=== PATIENT | male | born 1980 | race African-American/Black ===

== ENCOUNTER 2016-12-26 16:52 | Emergency (ER) | payer SELFPAY ==
[2016-12-26 17:09] VITALS: BP 119/83
--- NOTE | 2016-12-26 17:57 | EDM.PDOC ---
ED HPI GENERAL MEDICAL PROBLEM - General Chief Complaint: Upper Extremity Injury/Pain Stated Complaint: RT HAND LAC Time Seen by Provider: 12/26/16 17:18 Source of Information: Reports: Patient, Significant Other (Girlfriend) History Limitations: Reports: No Limitations - History of Present Illness INITIAL COMMENTS - FREE TEXT/NARRATIVE: The patient states that his right hand was crushed between a trailer and a hitch while at work yesterday morning, 12/25/2016. He suffered a laceration to the dorsum of his hand, that he has poured alcohol over, followed by butterfly strips. His hand has since developed significant pain and swelling. He took a leftover Percocet around 19:00 last night, and a single dose of leftover Keflex 500 mg around 11:00 this morning. Treatments DIDACTIC INSTRUCTOR: Reports: Other (see below) Other Treatments DIDACTIC INSTRUCTOR: left over percocet and old antibiotic Right Hand Pain Score (Numeric/FACES): 8 - Related Data Allergies Allergy/AdvReac Type Severity Reaction Status Date / Time methadone Allergy Rash Verified 01/30/16 15:05 morphine Allergy Rash Verified 01/30/16 15:05 Home Meds: Home Meds ALPRAZolam [Xanax] 2 mg PO Q12HR PRN #20 tablet 11/11/14 [Rx] Amiodarone [Cordarone] 200 mg PO BID 11/11/14 [History] Aspirin [Halfprin] 81 mg PO DAILY 11/11/14 [History] Carvedilol [Coreg] 6.25 mg PO BID 11/11/14 [History] Lisinopril 2.5 mg PO DAILY 11/11/14 [History] Simvastatin [Zocor] 40 mg PO BEDTIME 11/11/14 [History] Spironolactone [Aldactone] 12.5 mg PO DAILY 11/11/14 [History] Cephalexin 500 mg PO QID #20 capsule 01/30/16 [Rx] Amiodarone [Cordarone] 200 mg PO BID #14 tablet 12/26/16 [Rx] Carvedilol [Coreg] 6.25 mg PO BIDMEALS #14 tablet 12/26/16 [Rx] Cephalexin [Keflex] 500 mg PO Q6HR #40 cap 12/26/16 [Rx] Hydrocodone/Acetaminophen [Anadarko 5-325 Tablet] 1 - 2 tab PO Q8H PRN #14 tablet 12/26/16 [Rx] Lisinopril 2.5 mg PO DAILY #7 tablet 12/26/16 [Rx] Simvastatin [Zocor] 40 mg PO BEDTIME #7 tablet 12/26/16 [Rx] Spironolactone [Aldactone] 12.5 mg PO DAILY #4 tablet 12/26/16 [Rx] Past Medical History HEENT History: Reports: Allergic Rhinitis Cardiovascular History: Reports: Cardiomyopathy (etiology unclear), Heart Failure (LVEF 22-23% in 2014), High Cholesterol, Hypertension, [place]. Denies: CAD Respiratory History: Reports: Sleep Apnea Gastrointestinal History: Reports: GERD Neurological History: Reports: Migraines Psychiatric History: Reports: Anxiety, Depression - Past Surgical History Cardiovascular Surgical History: Reports: AICD, Pacer Social & Family History - Tobacco Use Smoking Status *Q: Current Every Day Smoker Years of Tobacco use: 3 Packs/Tins Daily: 1 - Caffeine Use Caffeine Use: Reports: Coffee, Soda - Alcohol Use Alcohol Use History: Yes Alcohol Use Frequency: Socially - Recreational Drug Use Recreational Drug Use: Yes Drug Use in Last 12 Months: Yes Recreational Drug Type: Reports: Marijuana/Hashish (edibles) Other Recreational Drug Type: edible marijuana about 1 month ago - Living Situation & Occupation Living situation: Reports: Single, with Significant Other (Girlfriend) Occupation: Employed ([employer]) Review of Systems - Review of Systems Review Of Systems: See Below Constitutional: Reports: Other (Recent seasonal allergy symptoms, including runny nose, watery eyes, coughing, sneezing) Eyes: Reports: No Symptoms Ears: Reports: No Symptoms Nose: Reports: No Symptoms Mouth/Throat: Reports: No Symptoms Respiratory: Reports: No Symptoms Cardiovascular: Reports: No Symptoms GI/Abdominal: Reports: No Symptoms Genitourinary: Reports: No Symptoms Musculoskeletal: Reports: No Symptoms Skin: Reports: No Symptoms Neurological: Reports: No Symptoms Psychiatric: Reports: No Symptoms ED EXAM, GENERAL - Physical Exam Exam: See Below Exam Limited By: No Limitations General Appearance: Alert, WD/WN, Mild Distress Extremities: Normal Capillary Refill, Other (Approximately 2 cm jagged laceration overlying the right third MCP joint. No drainage from the wound. There is associated swelling to the dorsum of the hand. Flexion and extension of the third finger are limited due to pain - I doubt there is significant tendinous injury. Neurovascular status of the right hand is intact.) Course - Vital Signs Last Recorded V/S: Last Vital Signs Temp 37.0 C 12/26/16 17:07 Pulse 101 H 12/26/16 17:07 Resp 20 12/26/16 17:07 BP 119/83 12/26/16 17:07 Pulse Ox 99 12/26/16 17:07 - Orders/Labs/Meds Orders: Active Orders 24 hr Category Date Time Status Hand Comp Min 3V Rt [CR] Stat Exams 12/26/16 17:35 Ordered - Radiology Interpretation Free Text/Narrative:: 4-view radiograph of the right hand appear to be grossly unremarkable, with no fractures or dislocations identified. Soft tissue swelling is evident. Formal read per the Radiologist pending. - Re-Assessments/Exams Free Text/Narrative Re-Assessment/Exam: 12/26/16 18:23 As the wound is well over 6 or 8 hours old, suturing of the wound is not recommended. It will have to heal by secondary intention. The nurse will apply a clean dressing. I will start the patient on oral Keflex, prescribe Anadarko, and recommend over-the -counter ibuprofen. He is to keep his hand elevated. I will refer him to ortho. I explained that there is a good chance that he will need to return to the ER if his pain or swelling worsens, or if he develops purulent drainage from the wound. In that case, the patient should expect to be placed on IV antibiotics and admitted to the hospital. I will prescribe one week each of his cardiac medications, including Aldactone, simvastatin, lisinopril, Coreg, and amiodarone. I am not going to prescribe Xanax. I will refer the patient to a sanitation lead. Departure - Departure Time of Disposition: 18:26 Disposition: Home, Self-Care 01 Condition: Fair Clinical Impression: Crushing injury of right hand, Medication refill - Discharge Information Prescriptions: Hydrocodone/Acetaminophen [Anadarko 5-325 Tablet] 1 - 2 tab PO Q8H PRN #14 tablet PRN Reason: Pain (Severe 7-10) Referrals: Bruno Blair MD [Physician] - Kolton Jung MD [Physician] - Forms: ED Department Discharge Additional Instructions: You were seen in the emergency room after your right hand got crushed yesterday morning, 12/25/2016. Workup in the ER included x-rays of your hand. No broken bones or dislocations. You likely have an infection in your hand. You have been started on the antibiotic Keflex. Take 1 tablet every 6 hours, as prescribed. Finish the entire prescription unless told otherwise by a doctor. Elevate your right hand as much as possible. Take uppm-mlb-suzrgad ibuprofen 2-3 tablets (400-600 mg) every 8 hours, with food. Take 1-2 tablets Anadarko up to every 8 hours, as needed for pain not relieved by ibuprofen. If you take Anadarko, do not drive or operate heavy machinery. Anadarko will likely cause constipation, so consider taking a stool softener. Follow-up with the hand surgeon Dr. Blair at the next available appointment. If the pain or swelling of your right hand increases, or you develop a purulent drainage from your wound, please return to the ER. In that case, you should expect that you will receive IV antibiotics and be admitted to the hospital. Your cardiac medications have been refilled for 1 week. Take your amiodarone, Coreg, Zocor, lisinopril, and spironolactone as prescribed. Take an sfxk-pan-ftpdyow baby aspirin (81 mg) daily. Follow-up with the sanitation lead Dr. Kolton Jung this coming week. You will likely need to travel to [place] to see him. If any other problems, please do not hesitate to return to the ER. - My Orders Last 24 Hours: My Active Orders 12/26/16 17:35 Hand Comp Min 3V Rt [CR] Stat - Assessment/Plan Last 24 Hours: My Active Orders 12/26/16 17:35 Hand Comp Min 3V Rt [CR] Stat
[2016-12-26] MEDS ORDERED: Cephalexin 500 MG Cap PO ONE (18:21)
[2016-12-26] MEDS ORDERED: Acetaminophen/HYDROcodone 325-5 MG Tab PO ONE (18:21)
[2016-12-26] MEDS ORDERED: Ibuprofen 600 MG Tab PO STA (18:22)
--- NOTE | 2016-12-29 14:39 | CR ---
Right hand: Four views of the right hand were obtained. Comparison: No previous study. Diffuse soft tissue swelling is identified. Joint spaces are preserved. No discrete fracture or other acute bony abnormality is appreciated. Impression: 1. Diffuse soft tissue swelling. No discrete fracture is identified within the right hand. Diagnostic code #2
== END 2016-12-26 19:05 | disposition home or self-care (01) ==
LOC: JD.ED 16:52 → SUPCPDRO 16:52 → JD.ED 19:05
DX: S61.411A Laceration without foreign body of right hand, initial encounter (principal); W23.0XXA Caught, crushed, jammed, or pinched between moving objects, initial encounter; I11.0 Hypertensive heart disease with heart failure; I50.9 Heart failure, unspecified; I25.2 Old myocardial infarction; E78.00 Pure hypercholesterolemia, unspecified; K21.9 Gastro-esophageal reflux disease without esophagitis; G43.909 Migraine, unspecified, not intractable, without status migrainosus; F41.9 Anxiety disorder, unspecified; F32.9 Major depressive disorder, single episode, unspecified; F17.210 Nicotine dependence, cigarettes, uncomplicated; Z95.0 Presence of cardiac pacemaker; Z79.899 Other long term (current) drug therapy; Z88.5 Allergy status to narcotic agent; Z88.8 Allergy status to other drugs, medicaments and biological substances
CPT/HCPCS: 73130; 99284; A9270; 99283

== ENCOUNTER 2017-06-23 15:57 | Emergency (ER) | payer SELFPAY ==
[2017-06-23 16:13] VITALS: BP 130/84
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
[2017-06-23] MEDS ORDERED: Ketorolac 60 MG/2 ML SDV IM ONE (17:50)
[2017-06-23] MEDS ORDERED: HYDROmorphone 0.5 MG/0.5 ML Syringe IVPUSH ONE (18:52)
[2017-06-23] MEDS ORDERED: Metoclopramide 10 MG/2 ML SDV IVPUSH ONE (18:53)
[2017-06-23] MEDS ORDERED: Oseltamivir 75 MG Cap PO ONE (18:53)
[2017-06-23] MEDS ORDERED: Acetaminophen 325 MG Tab PO ONE (18:55)
[2017-06-23] MEDS ORDERED: Ketorolac 30 MG/ML SDV IVPUSH SCH (19:00)
[2017-06-23] MEDS ORDERED: Dextrose 5%-0.9% NaCl 1,000 ML IV SCH (19:00)
--- NOTE | 2017-06-24 10:43 | CR ---
Pelvis and left hip: AP view of the pelvis was obtained as well as AP and frog-leg lateral views of the left hip. Comparison: No prior study. Joint spaces within both hips are maintained. Small sclerotic area is seen overlying the left sacroiliac joint believed to represent large bone island. Sacroiliac joints are within normal limits. No acute fracture or other abnormality is seen. Impression: 1. Incidental finding. Nothing acute is seen on AP pelvis or on two-view left hip study. Diagnostic code #2
== END 2017-06-23 19:30 | disposition home or self-care (01) ==
LOC: JD.ED 15:57
DX: J10.1 Influenza due to other identified influenza virus with other respiratory manifestations (principal); M25.552 Pain in left hip; F17.210 Nicotine dependence, cigarettes, uncomplicated; Z88.5 Allergy status to narcotic agent; Z88.8 Allergy status to other drugs, medicaments and biological substances; Z79.82 Long term (current) use of aspirin; Z79.899 Other long term (current) drug therapy
CPT/HCPCS: 73502-26-LT; 73502-LT; 87804; 99284

== ENCOUNTER 2023-06-03 21:01 | Emergency (ER) | payer SELFPAY ==
[2023-06-03] MEDS ORDERED: Sodium Chloride 0.9% 10 ML Syringe FLUSH PRN (22:24)
[2023-06-03] MEDS ORDERED: Sodium Chloride 0.9% 1,000 ML IV SCH (22:30)
[2023-06-03 22:50] LABS: BASOPHILS PERCENT AUTO 0.5 % (0.0-1.0); EOSINOPHILS PERCENT AUTO 0.5 % (0.0-6.0); HEMATOCRIT 47.1 % (42.0-52.0); HEMOGLOBIN 16.3 gm/dl (14.0-18.0); IMMATURE GRAN ABSOLUTE AUTO 0.01 K/mm3 (0.00-0.05); IMMATURE GRAN PERCENT AUTO 0.2 % (0.0-0.4); LYMPHOCYTES ABSOLUTE AUTO 1.1 K/mm3 (1.0-4.8); MEAN CORPUSCULAR HEMOGLOBIN 32.3 pg (28.0-32.0); MEAN CORPUSCULAR HGB CONC 34.6 g/dl (32.0-36.0); MEAN CORPUSCULAR VOLUME 93.3 fl (83.0-99.0); MEAN PLATELET VOLUME 11.2 fl (9.4-12.4); MONOCYTES ABSOLUTE AUTO 0.7 K/mm3 (0.0-0.8); MONOCYTES PERCENT AUTO 11.8 % (0.0-8.0); NEUTROPHILS ABSOLUTE AUTO 4.3 K/mm3 (1.8-7.7); PLATELET COUNT,PLT 108 K/mm3 (150-400); RED BLOOD CELL COUNT 5.05 M/mm3 (4.52-5.90); WHITE BLOOD CELL COUNT,WBC 6.19 K/mm3 (3.9-11.3)
[2023-06-03 22:59] LABS: BARBITURATE SCREEN,URINE NEGATIVE (CUTOFF=200); BENZODIAZEPINES SCREEN,URINE NEGATIVE (CUTOFF=150); BUPRENORPHINE SCREEN,URINE NEGATIVE (CUTOFF=10); METHADONE SCREEN, URINE NEGATIVE (CUT0FF=200); METHAMPHETAMINES SCREEN, URINE NEGATIVE (CUTOFF=500); OXYCODONE SCREEN,URINE NEGATIVE (CUT0FF=100); THC SCREEN,URINE 20 NG/ML PRESUMPTIVE POSITIVE (CUTOFF=50)
[2023-06-03 23:05] LABS: AMPHETAMINES SCREEN, URINE NEGATIVE (CUTOFF=500)
[2023-06-03 23:15] LABS: ALBUMIN 3.9 g/dl (3.4-5.0); ANION GAP 15.8 (5-15); BILIRUBIN TOTAL 0.6 mg/dL (0.2-1.0); BUN/CREATININE RATIO 8.5 (14-18); C-REACTIVE PROTEIN 1.6 mg/dL (<1.0); CALCIUM 9.1 mg/dL (8.5-10.1); CREATININE 1.3 mg/dL (0.7-1.3); EST CRCL DRUG DOSING (CG) 69.21 mL/min; POTASSIUM,K 3.8 mEq/L (3.5-5.1); PROTEIN TOTAL,TP 7.7 g/dl (6.4-8.2)
[2023-06-03 23:29] LABS: INFLUENZA A NAA NEGATIVE (NEGATIVE); RESPIRATORY SYNCYTIAL VIR NAA NEGATIVE (NEGATIVE)
[2023-06-03 23:36] LABS: CORONAVIRUS COVID-19 NAA POSITIVE (NEGATIVE)
[2023-06-04 03:03] VITALS: BP 130/82; PULSE 87
== END 2023-06-04 02:13 | disposition home or self-care (01) ==
LOC: JD.ED 21:01
DX: U07.1 COVID-19 (principal); F14.10 Cocaine abuse, uncomplicated; I11.0 Hypertensive heart disease with heart failure; I50.9 Heart failure, unspecified; K21.9 Gastro-esophageal reflux disease without esophagitis; E78.00 Pure hypercholesterolemia, unspecified; Z79.82 Long term (current) use of aspirin; Z79.899 Other long term (current) drug therapy; Z88.5 Allergy status to narcotic agent
CPT/HCPCS: 0241U; 36415; 80053; 80306; 80307; 85025; 86140; 99284; J3490; J7030

== ENCOUNTER 2024-02-17 07:57 | Emergency (ER) | payer SELFPAY ==
[2024-02-17] MEDS: Ketorolac 30 MG/ML SDV IM ONE (08:22)
[2024-02-17 11:30] VITALS: BP 132/74; PULSE 97
== END 2024-02-17 11:15 | disposition home or self-care (01) ==
LOC: JD.ED 07:57
DX: M54.6 Pain in thoracic spine (principal); M54.50 Low back pain, unspecified; Z79.899 Other long term (current) drug therapy; Z88.5 Allergy status to narcotic agent; Z88.8 Allergy status to other drugs, medicaments and biological substances
CPT/HCPCS: 72128; 72131; 96372; 99283; J1885

== ENCOUNTER 2024-02-18 15:30 | Observation (INO) | payer MEDICAID ==
[2024-02-18] MEDS ORDERED: Sodium Chloride 0.9% 10 ML Syringe FLUSH PRN (17:23)
[2024-02-18 18:34] LABS: BASOPHILS PERCENT AUTO 0.5 % (0.0-1.0); EOSINOPHILS ABSOLUTE AUTO 0.1 K/mm3 (0.0-0.4); EOSINOPHILS PERCENT AUTO 1.4 % (0.0-6.0); HEMATOCRIT 51.6 % (42.0-52.0); HEMOGLOBIN 17.7 gm/dl (14.0-18.0); IMMATURE GRAN ABSOLUTE AUTO 0.02 K/mm3 (0.00-0.05); IMMATURE GRAN PERCENT AUTO 0.2 % (0.0-0.4); LYMPHOCYTES ABSOLUTE AUTO 2.2 K/mm3 (1.0-4.8); LYMPHOCYTES PERCENT AUTO 25.4 % (24.0-44.0); MEAN CORPUSCULAR HEMOGLOBIN 31.8 pg (28.0-32.0); MEAN CORPUSCULAR HGB CONC 34.3 g/dl (32.0-36.0); MEAN CORPUSCULAR VOLUME 92.6 fl (83.0-99.0); MEAN PLATELET VOLUME 10.9 fl (9.4-12.4); MONOCYTES ABSOLUTE AUTO 0.6 K/mm3 (0.0-0.8); NEUTROPHILS ABSOLUTE AUTO 5.6 K/mm3 (1.8-7.7); NEUTROPHILS PERCENT AUTO 65.5 % (41.0-71.0); PLATELET COUNT,PLT 150 K/mm3 (150-400); RED BLOOD CELL COUNT 5.57 M/mm3 (4.52-5.90); WHITE BLOOD CELL COUNT,WBC 8.59 K/mm3 (3.9-11.3)
[2024-02-18 19:00] LABS: A/G RATIO 1.1 (1-2); ALANINE AMINOTRANSFERASE,ALT 38 U/L (16-63); ALBUMIN 4.2 g/dl (3.4-5.0); ALKALINE PHOSPHATASE 84 U/L (46-116); ASPARTATE AMNIOTRANSFERASE,AST 22 U/L (15-37); BILIRUBIN TOTAL 0.9 mg/dL (0.2-1.0); BLOOD UREA NITROGEN,BUN 15 mg/dL (7-18); BUN/CREATININE RATIO 12.5 (14-18); C-REACTIVE PROTEIN 0.91 mg/dL (<0.30); CALCIUM 9.7 mg/dL (8.5-10.1); CARBON DIOXIDE,CO2 26 mEq/L (21-32); CHLORIDE,CL 101 mEq/L (98-107); CREATININE 1.2 mg/dL (0.7-1.3); ESTIMATED GFR 77 mL/min (>60); GLUCOSE RANDOM 88 mg/dL (70-99); PROTEIN TOTAL,TP 8.1 g/dl (6.4-8.2); SODIUM,NA 136 mEq/L (136-145)
[2024-02-18 19:10] LABS: TROPONIN I HIGH SENSITIVITY 80 pg/mL (<=76)
[2024-02-18] MEDS: Ketorolac 30 MG/ML SDV IVPUSH ONE (19:41)
[2024-02-18] MEDS: Acetaminophen/HYDROcodone 325-5 MG Tab PO ONE (21:34)
[2024-02-19] MEDS ORDERED: Naloxone 0.4 MG/ML SDV IVPUSH PRN (00:05)
[2024-02-19] MEDS ORDERED: Acetaminophen 325 MG/10.15 ML PO PRN (00:10)
[2024-02-19] MEDS: HYDROmorphone 0.5 MG/0.5 ML Syringe IVPUSH PRN ×2 (00:39→12:04)
[2024-02-19] MEDS ORDERED: Acetaminophen 325 MG Tab PO PRN ×2 (05:16→11:22)
[2024-02-19] MEDS ORDERED: Ondansetron 4 MG/2 ML SDV IV PRN (09:55)
[2024-02-19] MEDS ORDERED: Polyethylene Glycol 3350 Powder 17 GM Packet PO PRN (09:55)
[2024-02-19] MEDS: oxyCODONE 5 MG Tab PO PRN (10:15)
[2024-02-19] MEDS: Docusate Sodium 100 MG Cap PO PRN (12:05)
[2024-02-19 13:13] LABS: CORONAVIRUS COVID-19 NAA NEGATIVE (NEGATIVE); INFLUENZA A NAA NEGATIVE (NEGATIVE); RESPIRATORY SYNCYTIAL VIR NAA NEGATIVE (NEGATIVE)
[2024-02-19] MEDS: cefTRIAXone 2 GM in Sodium Chloride 0.9% 100 ML IV SCH (15:05)
[2024-02-19] MEDS: Cyclobenzaprine 10 MG Tab PO SCH (15:08)
[2024-02-19] MEDS: VANCOmycin 1.5 GM/300 ML 1.5 GM in Premix Bag 1 BAG IV ONE (15:44)
[2024-02-19 17:01] VITALS: BP 132/80; PULSE 66
[2024-02-19] MEDS ORDERED: Sotalol 80 MG Tab PO SCH (21:00)
[2024-02-20] MEDS ORDERED: VANCOmycin 750 MG/150 ML 750 MG in Premix Bag 1 BAG IV SCH
[2024-02-20] MEDS ORDERED: Aspirin 81 MG Tab.EC PO SCH (09:00)
[2024-02-20] MEDS ORDERED: atorvaSTATin 40 MG Tab PO SCH (09:00)
[2024-02-20] MEDS ORDERED: Spironolactone 25 MG Tab PO SCH (09:00)
[2024-02-23 08:46] LABS: HSV SUBTYPE SOURCE Plasma; HSV1 SUBTYPE BY PCR Not Detected; HSV2 SUBTYPE BY PCR Not Detected
== END 2024-02-19 17:36 ==
LOC: JD.ED 15:30 → JD.MS 21:14
PROVIDERS: ADMIT Family Medicine; ATTEND Family Medicine
DX: R07.89 Other chest pain (principal); G89.29 Other chronic pain; M54.9 Dorsalgia, unspecified; R79.89 Other specified abnormal findings of blood chemistry; R51.9 Headache, unspecified; I11.0 Hypertensive heart disease with heart failure; I50.20 Unspecified systolic (congestive) heart failure; F41.9 Anxiety disorder, unspecified; F32.A Depression, unspecified; K21.9 Gastro-esophageal reflux disease without esophagitis; I25.2 Old myocardial infarction; G47.30 Sleep apnea, unspecified; F17.200 Nicotine dependence, unspecified, uncomplicated; Z98.890 Other specified postprocedural states; Z86.61 Personal history of infections of the central nervous system; Z79.82 Long term (current) use of aspirin; Z79.899 Other long term (current) drug therapy; Z20.822 Contact with and (suspected) exposure to COVID-19; Z95.810 Presence of automatic (implantable) cardiac defibrillator; Z88.5 Allergy status to narcotic agent
CPT/HCPCS: 0241U; 36415; 51798; 70450; 71045; 72128; 72131; 80053; 83735; 83880; 84484; 85025; 85379; 85652; 86140; 87040; 87449; 87529; 93005; 93306; 96374; 96375; 96376; 99285; A9270; G0378; J0133; J0696; J1170; J3372; J3490; 93010; 99223; G0433

== ENCOUNTER 2024-10-10 08:30 | Emergency (ER) | payer OTHER ==
[2024-10-10] MEDS ORDERED: Sodium Chloride 0.9% 10 ML Syringe FLUSH PRN (08:52)
[2024-10-10 09:00] LABS: BASOPHILS ABSOLUTE AUTO 0.1 K/mm3 (0.0-0.2); BASOPHILS PERCENT AUTO 0.9 % (0.0-1.0); EOSINOPHILS ABSOLUTE AUTO 0.3 K/mm3 (0.0-0.4); HEMATOCRIT 48.7 % (42.0-52.0); HEMOGLOBIN 16.5 gm/dl (14.0-18.0); IMMATURE GRAN ABSOLUTE AUTO 0.02 K/mm3 (0.00-0.05); IMMATURE GRAN PERCENT AUTO 0.3 % (0.0-0.4); MEAN CORPUSCULAR HEMOGLOBIN 31.4 pg (28.0-32.0); MEAN CORPUSCULAR HGB CONC 33.9 g/dl (32.0-36.0); MEAN CORPUSCULAR VOLUME 92.8 fl (83.0-99.0); MEAN PLATELET VOLUME 11.1 fl (9.4-12.4); MONOCYTES ABSOLUTE AUTO 0.6 K/mm3 (0.0-0.8); MONOCYTES PERCENT AUTO 7.4 % (0.0-8.0); NEUTROPHILS ABSOLUTE AUTO 3.6 K/mm3 (1.8-7.7); NEUTROPHILS PERCENT AUTO 47.4 % (41.0-71.0); PLATELET COUNT,PLT 153 K/mm3 (150-400); RED BLOOD CELL COUNT 5.25 M/mm3 (4.52-5.90); WHITE BLOOD CELL COUNT,WBC 7.53 K/mm3 (3.9-11.3)
[2024-10-10] MEDS: Aspirin 81 MG Tab.Chew PO ONE (09:19)
[2024-10-10 09:26] LABS: A/G RATIO 1.1 (1-2); ALBUMIN 4.1 g/dl (3.4-5.0); ANION GAP 12.8 (5-15); BILIRUBIN TOTAL 0.6 mg/dL (0.2-1.0); BUN/CREATININE RATIO 11.5 (14-18); CALCIUM 9.6 mg/dL (8.5-10.1); CREATININE 1.3 mg/dL (0.7-1.3); EST CRCL DRUG DOSING (CG) 70.88 mL/min; MAGNESIUM 1.7 mg/dL (1.8-2.4); POTASSIUM,K 3.8 mEq/L (3.5-5.1); PROTEIN TOTAL,TP 7.7 g/dl (6.4-8.2)
[2024-10-10 12:03] VITALS: BP 113/75; PULSE 76
== END 2024-10-10 11:45 | disposition home or self-care (01) ==
LOC: JD.ED 08:30
DX: T82.897A Other specified complication of cardiac prosthetic devices, implants and grafts, initial encounter (principal); R07.89 Other chest pain; I11.0 Hypertensive heart disease with heart failure; I50.9 Heart failure, unspecified; I25.2 Old myocardial infarction; Z88.8 Allergy status to other drugs, medicaments and biological substances; Z79.899 Other long term (current) drug therapy; Z79.82 Long term (current) use of aspirin; Z86.16 Personal history of COVID-19
CPT/HCPCS: 36415; 71045; 80053; 83735; 84484; 85025; 93005; 99285; A9270; 93010; 99284

== ENCOUNTER 2025-06-13 08:52 | Emergency (ER) | payer MEDICAID ==
[2025-06-13] MEDS ORDERED: Sodium Chloride 0.9% 10 ML Syringe FLUSH PRN (09:01)
[2025-06-13 09:19] LABS: BASOPHILS ABSOLUTE AUTO 0.0 K/mm3 (0.0-0.2); BASOPHILS PERCENT AUTO 0.6 % (0.0-1.0); EOSINOPHILS ABSOLUTE AUTO 0.1 K/mm3 (0.0-0.4); EOSINOPHILS PERCENT AUTO 1.8 % (0.0-6.0); IMMATURE GRAN ABSOLUTE AUTO 0.03 K/mm3 (0.00-0.05); IMMATURE GRAN PERCENT AUTO 0.4 % (0.0-0.4); LYMPHOCYTES ABSOLUTE AUTO 2.0 K/mm3 (1.0-4.8); LYMPHOCYTES PERCENT AUTO 28.5 % (24.0-44.0); MEAN PLATELET VOLUME 10.8 fl (9.4-12.4); MONOCYTES ABSOLUTE AUTO 0.6 K/mm3 (0.0-0.8); MONOCYTES PERCENT AUTO 8.5 % (0.0-8.0); NEUTROPHILS ABSOLUTE AUTO 4.3 K/mm3 (1.8-7.7); NEUTROPHILS PERCENT AUTO 60.2 % (41.0-71.0); NRBC ABSOLUTE 0.00 (0.00-0.02); NRBC PERCENT 0.0 % (0.0-0.2); PLATELET COUNT,PLT 145 K/mm3 (150-400); RED BLOOD CELL COUNT 5.27 M/mm3 (4.52-5.90); WHITE BLOOD CELL COUNT,WBC 7.09 K/mm3 (3.9-11.3)
[2025-06-13 09:42] LABS: A/G RATIO 0.9 (1-2); ALANINE AMINOTRANSFERASE,ALT 97.0 U/L (16-63); ASPARTATE AMNIOTRANSFERASE,AST 44.0 U/L (15-37); BILIRUBIN TOTAL 0.5 mg/dL (0.2-1.0); BLOOD UREA NITROGEN,BUN 26.0 mg/dL (7-18); CARBON DIOXIDE,CO2 22.0 mEq/L (21-32); CHLORIDE,CL 101.0 mEq/L (98-107); CREATININE 1.5 mg/dL (0.7-1.3); EST CRCL DRUG DOSING (CG) 58.76 mL/min; ESTIMATED GFR 59.0 mL/min (>60); GLUCOSE RANDOM 99.0 mg/dL (70-99); POTASSIUM,K 3.8 mEq/L (3.5-5.1); PROTEIN TOTAL,TP 8.1 g/dl (6.4-8.2); SODIUM,NA 134.0 mEq/L (136-145); TROPONIN I HIGH SENSITIVITY 70.0 pg/mL (<=76)
[2025-06-13] MEDS ORDERED: Naloxone 0.4 MG/ML SDV IVPUSH PRN ×3 (10:39→15:03)
[2025-06-13] MEDS: Furosemide 40 MG/4 ML VIAL IVPUSH ONE (18:44)
[2025-06-13 19:32] VITALS: BP 110/77; PULSE 58
== END 2025-06-13 19:05 | disposition home or self-care (01) ==
LOC: JD.ED 08:52
DX: R07.89 Other chest pain (principal); I11.0 Hypertensive heart disease with heart failure; I50.9 Heart failure, unspecified; Z95.810 Presence of automatic (implantable) cardiac defibrillator; Z88.8 Allergy status to other drugs, medicaments and biological substances; Z88.5 Allergy status to narcotic agent; Z79.899 Other long term (current) drug therapy; Z79.01 Long term (current) use of anticoagulants; Z86.16 Personal history of COVID-19
CPT/HCPCS: 36415; 71045; 80053; 83690; 83735; 83880; 84484; 85025; 93005; 96374; 96376; 99285; A9270; J1938; 93010; 99284; J1171